=== PATIENT | female | born 1995 | race Caucasian/White ===

== ENCOUNTER 2018-11-30 20:15 | Outpatient (CLI) | payer OTHER, MEDICAID ==
[2018-11-30] MEDS: LACTATED RINGER'S 1,000 ML IV ×2 (21:40→23:14)
[2018-11-30 21:53] LABS: ADD MAN DIFF? NO
[2018-11-30 22:01] LABS: WHITE BLOOD COUNT 9.3 10^3/ul (4.8-10.8)
[2018-11-30 22:01] LABS: BASOPHILS % 0.4 % (0.0-2.0); EOSINOPHILS # 0.2 10^3/ul (0.0-0.5); EOSINOPHILS % 1.7 % (0.0-7.0); HEMATOCRIT 32.5 % (37.0-47.0); HEMOGLOBIN 10.2 g/dl (12.0-16.0); LYMPHOCYTES # 2.5 10^3/ul (0.8-2.9); LYMPHOCYTES % 26.8 % (15.0-51.0); MEAN CORPUSCULAR HEMOGLOBIN 25.8 pg (29.0-33.0); MEAN CORPUSCULAR HGB CONC 31.4 g/dl (32.0-37.0); MEAN CORPUSCULAR VOLUME 82.1 fl (82.0-101.0); MONOCYTE # 0.6 10^3/ul (0.3-0.9); MONOCYTES % 6.1 % (0.0-11.0); NEUTROPHIL # 5.9 10^3/ul (1.6-7.5); NEUTROPHILS % 63.6 % (39.0-77.0); PLATELET COUNT 246 10^3/UL (140-415); RED BLOOD COUNT 3.96 10^6/ul (4.20-5.40); RED CELL DISTRIBUTION WIDTH 13.5 % (11.5-14.5)
[2018-11-30 22:14] LABS: ALANINE AMINOTRANSFERASE 14 IU/L (13-69); ALBUMIN/GLOBULIN RATIO 1.08; ALKALINE PHOSPHATASE 167 IU/L (42-121); ANION GAP 8 (5-13); ASPARTATE AMINO TRANSFERASE 19 IU/L (15-46); BILIRUBIN,INDIRECT 0.4 mg/dl (0-1.1); BILIRUBIN,TOTAL 0.4 mg/dl (0.2-1.3); BLOOD UREA NITROGEN 8 mg/dl (7-20); CALCIUM 9.6 mg/dl (8.4-10.2); CARBON DIOXIDE 24 mmol/L (21-31); CHLORIDE 104 mmol/L (97-110); CREATININE 0.36 mg/dl (0.44-1.00); Estimated GFR > 60 mL/min (>60); GLUCOSE 78 mg/dl (70-220); POTASSIUM 3.9 mmol/L (3.5-5.1); SODIUM 136 mmol/L (135-144); TOTAL PROTEIN 7.7 g/dl (6.1-8.1)
[2018-11-30 22:21] LABS: ADD UMIC YES; UR ASCORBIC ACID NEGATIVE (NEGATIVE); UR BACTERIA FEW /HPF (NONE SEEN); UR BILIRUBIN (Dip) NEGATIVE (NEGATIVE); UR BLOOD (Dip) NEGATIVE (NEGATIVE); UR CLARITY SLIGHTLY CLOUDY (CLEAR); UR COLOR YELLOW (YELLOW); UR GLUCOSE (Dip) NEGATIVE (NEGATIVE); UR KETONES (Dip) NEGATIVE (NEGATIVE); UR LEUKOCYTE ESTERASE (Dip) 2+ Leu/ul (NEGATIVE); UR NITRITE (Dip) NEGATIVE (NEGATIVE); UR RBC 1 /HPF (0-5); UR SQUAMOUS EPITHELIAL CELL FEW /HPF (FEW); UR TOTAL PROTEIN (Dip) NEGATIVE (NEGATIVE); UR UROBILINOGEN (Dip) NEGATIVE (NEGATIVE); UR WBC 15 /HPF (0-5)
[2018-11-30] MEDS: SOD CHLORIDE 0.9% 1,000 ML IV (22:57)
[2018-11-30] MEDS: TERBUTALINE 1 MG/ML INJ SC (23:01)
[2018-11-30] MEDS: CEFTRIAXONE 1 GM/50 ML (PMX) 50 ML IVPB (23:07)
[2018-12-01] MEDS: TERBUTALINE 1 MG/ML INJ SC (00:05)
== END 2018-12-01 01:55 | disposition home or self-care (01) ==
LOC: OBT 20:15 → L-D 20:17
DX: O62.9 Abnormality of forces of labor, unspecified (principal); O23.43 Unspecified infection of urinary tract in pregnancy, third trimester; Z3A.33 33 weeks gestation of pregnancy
CPT/HCPCS: 76817; 76818; 80053; 81001; 85025; 87086; 96360; 96361; 96372

== ENCOUNTER 2019-01-13 15:35 | Inpatient (IN) | payer OTHER ==
[2019-01-13] MEDS ORDERED: LIDOCAINE 1% (MPF) 30 ML INJ INJ (16:30)
[2019-01-13] MEDS ORDERED: METHYLERGONOVINE 0.2 MG INJ IM (16:30)
[2019-01-13] MEDS ORDERED: IBUPROFEN 600 MG TAB PO (16:30)
[2019-01-13] MEDS ORDERED: MISOPROSTOL 200 MCG TAB PR (16:30)
[2019-01-13] MEDS ORDERED: BUTORPHANOL 2 MG INJ IV ×2 (16:30)
[2019-01-13] MEDS ORDERED: CARBOPROST 250 MCG INJ IM (16:30)
[2019-01-13] MEDS ORDERED: OXYTOCIN 30 UNITS/LR 500 ML IV (16:30)
[2019-01-13 17:44] LABS: ADD MAN DIFF? NO
[2019-01-13] MEDS: AMPICILLIN 2 GM/NS (PMX) 100 ML IV (17:49)
[2019-01-13] MEDS: LACTATED RINGER'S 1,000 ML IV ×2 (17:49→19:15)
[2019-01-13] MEDS: OXYTOCIN 30 UNITS/LR 500 ML IV ×3 (18:00→22:59)
[2019-01-13 18:01] LABS: WHITE BLOOD COUNT 8.1 10^3/ul (4.8-10.8)
[2019-01-13 18:01] LABS: BASOPHILS % 0.4 % (0.0-2.0); EOSINOPHILS # 0.1 10^3/ul (0.0-0.5); EOSINOPHILS % 1.1 % (0.0-7.0); HEMATOCRIT 32.3 % (37.0-47.0); HEMOGLOBIN 9.8 g/dl (12.0-16.0); LYMPHOCYTES # 2.2 10^3/ul (0.8-2.9); LYMPHOCYTES % 26.4 % (15.0-51.0); MEAN CORPUSCULAR HGB CONC 30.3 g/dl (32.0-37.0); MEAN CORPUSCULAR VOLUME 82.4 fl (82.0-101.0); MEAN PLATELET VOLUME 11.5 fl (7.4-10.4); MONOCYTE # 0.4 10^3/ul (0.3-0.9); MONOCYTES % 5.4 % (0.0-11.0); NEUTROPHIL # 5.4 10^3/ul (1.6-7.5); NEUTROPHILS % 65.8 % (39.0-77.0); PLATELET COUNT 222 10^3/UL (140-415); RED BLOOD COUNT 3.92 10^6/ul (4.20-5.40); RED CELL DISTRIBUTION WIDTH 16.1 % (11.5-14.5)
[2019-01-13 18:09] LABS: INR 0.96; PROTIME 12.9 Sec (11.9-14.9)
[2019-01-13 18:17] LABS: PARTIAL THROMBOPLASTIN TIME 26.4 Sec (23.0-35.0)
[2019-01-13 18:42] LABS: HEPATITIS B SURFACE ANTIGEN NEGATIVE (NEGATIVE)
[2019-01-13 18:52] LABS: HIV 1&2 ANTIBODY NEGATIVE (NEGATIVE)
[2019-01-13] MEDS ORDERED: FENTAnyl 2MCG/ML-ROPIV 0.2% 100 ML (19:51)
[2019-01-13 20:57] LABS: AMPHETAMINE/METHAMPHETAMINE Negative (NEGATIVE); BARBITURATES Negative (NEGATIVE); BENZODIAZEPINES Negative (NEGATIVE); CANNABINOIDS Negative (NEGATIVE); COCAINE Negative (NEGATIVE); OPIATES Negative (NEGATIVE)
[2019-01-13] MEDS ORDERED: NALOXONE (0.4 MG/ML) INJ IV (21:00)
[2019-01-13] MEDS: FENTAnyl 2MCG/ML-ROPIV 0.2% 100 ML BAG EPI (21:56)
[2019-01-13] MEDS: AMPICILLIN 1 GM/NS (PMX) 50 ML IV (21:57)
[2019-01-13 22:33] LABS: RAPID PLASMA REAGIN NONREACTIVE (NR)
[2019-01-14] MEDS ORDERED: WITCH HAZEL/GLYCERIN PAD PR (01:30)
[2019-01-14] MEDS ORDERED: BENZOCAINE 20% 56 ML SPRAY TOP (01:30)
[2019-01-14] MEDS ORDERED: CARBOPROST 250 MCG INJ IM (01:30)
[2019-01-14] MEDS ORDERED: METHYLERGONOVINE 0.2 MG INJ IM (01:30)
[2019-01-14] MEDS ORDERED: ZOLPIDEM 5 MG TAB PO (01:30)
[2019-01-14] MEDS ORDERED: MISOPROSTOL 200 MCG TAB PR (01:30)
[2019-01-14] MEDS ORDERED: OXYTOCIN 30 UNITS/LR 500 ML IV (01:30)
[2019-01-14] MEDS: IBUPROFEN 600 MG TAB PO ×3 (06:33→17:47)
[2019-01-14 07:08] LABS: ADD MAN DIFF? NO
[2019-01-14 07:10] LABS: BASOPHILS % 0.4 % (0.0-2.0); EOSINOPHILS # 0.1 10^3/ul (0.0-0.5); EOSINOPHILS % 0.7 % (0.0-7.0); HEMATOCRIT 32.5 % (37.0-47.0); HEMOGLOBIN 10.1 g/dl (12.0-16.0); LYMPHOCYTES # 2.5 10^3/ul (0.8-2.9); LYMPHOCYTES % 22.4 % (15.0-51.0); MEAN CORPUSCULAR HEMOGLOBIN 25.3 pg (29.0-33.0); MEAN CORPUSCULAR HGB CONC 31.1 g/dl (32.0-37.0); MEAN CORPUSCULAR VOLUME 81.5 fl (82.0-101.0); MEAN PLATELET VOLUME 11.2 fl (7.4-10.4); MONOCYTE # 0.7 10^3/ul (0.3-0.9); NEUTROPHIL # 7.9 10^3/ul (1.6-7.5); NEUTROPHILS % 70.1 % (39.0-77.0); PLATELET COUNT 200 10^3/UL (140-415); RED BLOOD COUNT 3.99 10^6/ul (4.20-5.40); RED CELL DISTRIBUTION WIDTH 15.8 % (11.5-14.5)
[2019-01-14 07:10] LABS: WHITE BLOOD COUNT 11.2 10^3/ul (4.8-10.8)
[2019-01-14] MEDS: SENNA/DOCUSATE NA (8.6MG/50MG) TAB PO ×2 (09:21→20:48)
[2019-01-14] MEDS: OXYCODONE/ASPIRIN (4.88/325) TAB PO ×2 (09:23→14:18)
[2019-01-14] MEDS: LANOLIN HPA 1 PKT TOP (09:23)
[2019-01-14] MEDS: MAGNESIUM HYDROXIDE 30ML CUP PO (17:47)
[2019-01-14] MEDS: BISACODYL 10 MG SUPP PR (20:47)
[2019-01-15] MEDS: IBUPROFEN 600 MG TAB PO ×3 (06:14→12:08)
[2019-01-15] MEDS: SENNA/DOCUSATE NA (8.6MG/50MG) TAB PO (10:41)
[2019-01-15] MEDS: DIPHTH/TET/ACEL PERTUSS (ADULT) 0.5 ML VIAL IM* (10:42)
[2019-01-16 13:42] LABS: RUBELLA ANTIBODY - IGM <20.00 AU/mL
[2019-01-16 20:47] LABS: RUBELLA ANTIBODY - IGG <0.90 index
== END 2019-01-15 13:10 | disposition home or self-care (01) | DRG 807 ==
LOC: OBT 15:35 → PP1 01-14 00:20 → L-D 15:35 → OBT 16:15 → L-D 16:15
PROC: 10E0XZZ Delivery of Products of Conception, External Approach (ICD-10-PCS; principal; 2019-01-13)
PROC: 3E033VJ Introduction of Other Hormone into Peripheral Vein, Percutaneous Approach (ICD-10-PCS; 2019-01-13)
DX: O48.0 Post-term pregnancy (principal); Z37.0 Single live birth; Z3A.40 40 weeks gestation of pregnancy
CPT/HCPCS: 62322; 76815; 80307; 85025; 85610; 85730; 86592; 86703; 86762; 86850; 86900; 86901; 87340; 90715; 99464